=== PATIENT | male | born 1950 | race Caucasian/White ===

== ENCOUNTER 2025-02-12 07:52 | Outpatient (CLI) | payer OTHER ==
[2025-02-12] MEDS ORDERED: OMEPRAZOLE MAGN20 MG PO (13:51)
[2025-02-12] MEDS ORDERED: PEPCID AC20 MG PO (13:51)
[2025-02-12] MEDS ORDERED: TAMS0.4C PO (13:52)
[2025-02-12] MEDS ORDERED: LIPITOR40 M1 PO (13:52)
== END 2025-02-12 09:54 | disposition home or self-care (01) ==
LOC: RX STUDY 07:52
PROVIDERS: ATTEND Internal Medicine Gastroenterology
DX: R13.14 Dysphagia, pharyngoesophageal phase (principal); R13.12 Dysphagia, oropharyngeal phase

== ENCOUNTER 2025-02-12 13:40 | Inpatient (IN) | payer OTHER ==
[~2025-02-12] VITALS: Ht 167.6 cm; Wt 77.1 kg
[2025-02-12] MEDS ORDERED: OMEPRAZOLE MAGN20 MG PO (13:51)
[2025-02-12] MEDS ORDERED: PEPCID AC20 MG PO (13:51)
[2025-02-12] MEDS ORDERED: TAMS0.4C PO (13:52)
[2025-02-12] MEDS ORDERED: LIPITOR40 M1 PO (13:52)
--- NOTE | 2025-02-12 13:52 | NUR ---
PACIENTE ALERTA Y ORIENTADO X3 TRAIDO EN AMBULANCIA. REFIERE VENIR POR ASPIRACION DE MEDICAMENTO VALIUM MIENTRAS SE REALIZABA UN ESTUDIO. SE ESTIMAN VITALES Y SE UBICA.
[2025-02-12] MEDS ORDERED: 0.9 % SODIUM CHLORIDE 1,000 ML IV ONE (14:30)
[2025-02-12] MEDS ORDERED: PIPERACILLIN/TAZOBACTAM SODIUM 3.375 GM VIAL IV ONE (14:30)
[2025-02-12] MEDS ORDERED: FAMOtidine 10 MG/ML (4ML VIAL) IV ONE (14:30)
[2025-02-12] MEDS ORDERED: LEVALBUTEROL HCL 1.25 MG/3 ML SOLUTION IH ONE (14:45)
[2025-02-12 14:54] LABS: ABG PH 7.440 (7.35-7.45); ABG PO2 72.0 mmHg (80-100); BICARBONATE 24.9 mmol/l (23-25); o2 21 %
[2025-02-12 15:30] LABS: BASO % 0.4 % (0.1-1.2); EOS # 0.01 (0.04-0.54); EOS % 0.1 % (0.7-7.0); LYMPH # 0.17 (1.18-3.74); LYMPH % 1.8 % (19.3-53.1); MEAN PLATELET VOLUME 9.40 fl (9.4-12.4); MONO # 0.46 (0.24-0.82); MONO % 4.9 % (4.7-12.5); NEUT # 8.62 (1.56-6.13); NEUT % 92.5 % (34.0-71.1); RED CELL DISTRIBUTION WIDTH 11.9 % (11.6-14.4)
--- NOTE | 2025-02-12 15:34 | NUR ---
`SE REALIZA LAB Y SE ADMINISTRA TX DOMINICK ORDEN MEDICA BAJO MEDIDAS ASEPTICAS. SE ORIENTA PTE QUIEN REFIERE ENTENDER Y ACEPTAR
[2025-02-12 15:50] LABS: INR 1.07
[2025-02-12 15:55] LABS: ALT/SGPT 16.0 U/L (12-78); AST/SGOT 21.0 U/L (15-37); BILIRUBIN TOTAL 0.94 mg/dL (0.3-1.2); BUN CREA RATIO 15.0 (7.0-25.0); CREATININE SERUM 1.16 mg/dL (0.70-1.30); GFR 61.71; GLOBULINA 3.8 G/DL (2.4-3.5); GLUCOSE FASTING 189.0 mg/dL (65-100); OSMOLALITY SERUM 286.0 MOSM/KG (275-295)
[2025-02-12 17:11] LABS: URINE APPEARANCE Clear; URINE BILIRRUBIN Negative (NEGATIVE); URINE BLOOD Negative; URINE COLOR Yellow; URINE KETONE Trace (NEGATIVE); URINE LEUKOCYTE Negative; URINE NITRATE Negative; URINE PROTEIN Negative (NEGATIVE); URINE UROBILINOGEN 0.2 E.U./dl
[2025-02-12 17:12] LABS: URINE BACTERIA 8.3 uL (0.0-1933); URINE EPITHELIAL CELLS 2.1 uL (0.0-38.8); URINE RBC 10.2 uL (0.0-20.8); URINE WBC 3.0 uL (0.0-23.2)
[2025-02-12 17:17] LABS: URINE CAST 0.00 uL (0.0-1.40); URINE GLUCOSE 500 MG/DL (NEGATIVE)
[2025-02-12] MEDS ORDERED: PIPERACILLIN/TAZOBACTAM SODIUM 3.375 GM in DEXTROSE 5 % IN WATER 100 ML IV SCH (20:21)
[2025-02-12] MEDS ORDERED: FAMOTIDINE/PF 20 MG in 0.9 % SODIUM CHLORIDE 8 ML IV PUSH SCH (20:21)
[2025-02-12] MEDS ORDERED: ONDANSETRON HCL 4 MG in 0.9 % SODIUM CHLORIDE 50 ML IV PRN (20:30)
[2025-02-12] MEDS ORDERED: 0.9 % SODIUM CHLORIDE 1,000 ML IV SCH (20:30)
[2025-02-12] MEDS ORDERED: ACETAMINOPHEN 500 MG GEL..CAP PO PRN (20:30)
[2025-02-12 23:38] VITALS: BP 104/49; O2SAT 96
[2025-02-13 02:26] VITALS: BP 95/52
[2025-02-13] MEDS ORDERED: ENOXAPARIN SODIUM 40 MG/0.4 ML SYRINGE SUBCUTANEO SCH (09:00)
[2025-02-13] MEDS ORDERED: TAMSULOSIN HCL 0.4 MG CAP PO SCH (09:00)
[2025-02-13 09:07] VITALS: BP 110/66
[2025-02-13 17:44] VITALS: BP 143/84; O2SAT 97
[2025-02-14 04:58] LABS: BASO % 0.8 % (0.1-1.2); EOS # 0.26 (0.04-0.54); EOS % 3.5 % (0.7-7.0); LYMPH # 0.51 (1.18-3.74); LYMPH % 6.8 % (19.3-53.1); MEAN PLATELET VOLUME 9.60 fl (9.4-12.4); MONO # 0.76 (0.24-0.82); MONO % 10.2 % (4.7-12.5); NEUT # 5.84 (1.56-6.13); NEUT % 78.3 % (34.0-71.1); RED CELL DISTRIBUTION WIDTH 11.8 % (11.6-14.4)
[2025-02-14 05:29] LABS: ALT/SGPT 14.0 U/L (12-78); AST/SGOT 15.0 U/L (15-37); BILIRUBIN TOTAL 0.98 mg/dL (0.3-1.2); BUN CREA RATIO 11.0 (7.0-25.0); CREATININE SERUM 1.03 mg/dL (0.70-1.30); GFR 70.79; GLOBULINA 2.8 G/DL (2.4-3.5); GLUCOSE FASTING 100.0 mg/dL (65-100); OSMOLALITY SERUM 284.0 MOSM/KG (275-295)
[2025-02-14 08:00] VITALS: BP 113/64; O2SAT 97
[2025-02-14] MEDS ORDERED: FLUMAZENIL 0.5 MG/5 ML ML IV STA (15:30)
[2025-02-14] MEDS ORDERED: DIPHENHYDRAMINE HCL 50 MG/ML VIAL 1ML IV ONE (15:30)
[2025-02-14] MEDS ORDERED: MIDAZOLAM HCL 2 MG/2 ML VIAL IV ONE (15:30)
[2025-02-14] MEDS ORDERED: fentaNYL CITRATE 50 MCG/ML AMPUL IV PUSH ONE (15:30)
[2025-02-14 16:49] VITALS: BP 129/69
[2025-02-14 20:00] VITALS: BP 141/79; O2SAT 95
[2025-02-15 00:47] VITALS: BP 110/66; O2SAT 95
[2025-02-15 09:39] VITALS: BP 116/67
[2025-02-15 16:03] LABS: BUN CREA RATIO 12.0 (7.0-25.0); CHOL HDL RATIO 4.4 (0-5.0); CREATININE SERUM 1.12 mg/dL (0.70-1.30); GFR 64.26; GLUCOSE FASTING 103.0 mg/dL (65-100); HDL 49.0 mg/dl (40-60); LDL 142.0 mg/dl (0-130); OSMOLALITY SERUM 280.0 MOSM/KG (275-295); VLDL 22.0 (0-39)
[2025-02-15] MEDS ORDERED: AA 4.25%/CAL/LYTES/DEXT 5% 1,000 ML PERIFERAL SCH (17:00)
[2025-02-15] MEDS ORDERED: FAT EMULSIONS 250 ML IV SCH (21:00)
[2025-02-15] MEDS ORDERED: FAMOTIDINE/PF 20 MG in 0.9 % SODIUM CHLORIDE 8 ML IV PUSH SCH (21:00)
== END 2025-02-15 15:34 | disposition home or self-care (01) | DRG 179 ==
LOC: ER 13:40 → MEDI 20:32
PROVIDERS: General Practice; ADMIT Internal Medicine; ATTEND Internal Medicine
PROC: BB24ZZZ Computerized Tomography (CT Scan) of Bilateral Lungs (ICD-10-PCS; 2025-02-12)
PROC: 3E0F7GC Introduction of Other Therapeutic Substance into Respiratory Tract, Via Natural or Artificial Opening (ICD-10-PCS; 2025-02-12)
PROC: 0DJ08ZZ Inspection of Upper Intestinal Tract, Via Natural or Artificial Opening Endoscopic (ICD-10-PCS; principal; 2025-02-14)
DX: J69.8 Pneumonitis due to inhalation of other solids and liquids (principal); K22.2 Esophageal obstruction; R19.06 Epigastric swelling, mass or lump; R13.10 Dysphagia, unspecified; T50.8X5A Adverse effect of diagnostic agents, initial encounter; Y92.538 Other ambulatory health services establishments as the place of occurrence of the external cause